=== PATIENT | female | born 1950 | race Caucasian/White ===

== ENCOUNTER → 2025-01-24 | Emergency (ER) | payer OTHER ==
[~2025-01-24] VITALS: Ht 160 cm; Wt 69.5 kg
[2025-01-24 20:05] VITALS: TEMP 98.1
[2025-01-24 20:59] LABS: PLATELET COUNT (AUTO) 414 K/uL (150-450); RED BLOOD CELL COUNT(AUTO) 4.59 MIL/uL (4.00-5.20); RED CELL DISTRIBUTION WIDTH 14.1 % (11.5-14.5); WHITE BLOOD COUNT (AUTO) 6.4 K/uL (4.5-11.0)
[2025-01-24 21:09] LABS: CALCIUM, TOTAL 8.8 mg/dL (8.8-10.5); CREATININE 0.77 mg/dL (0.60-1.30); GLOMERULAR FILTR. RATE CALC > 60 mL/min (>60); GLUCOSE,RANDOM 116 mg/dL (70-110); SODIUM SERUM 140 mmol/L (136-145); UREA NITROGEN, BLOOD 17 mg/dL (7-18)
[2025-01-24 21:15] LABS: ASPARTATE AMINOTRANSFERASE 18.0 U/L (15-37); TOTAL PROTEIN, SERUM 7.2 g/dL (6.4-8.2)
[2025-01-24] MEDS: LIDOCAINE 5% TRANSDERMAL PATCH TD ONE (22:42)
[2025-01-24] MEDS: KETOROLAC TROMETHAMINE 30 MG/ML VIAL IM ONE (22:42)
[2025-01-24 23:24] VITALS: BP 148/77; PULSE 85; RESP 18; O2SAT 95
== END | disposition home or self-care (01) ==
LOC: EMS 19:57
DX: M54.2 Cervicalgia (principal); I10 Essential (primary) hypertension
CPT/HCPCS: 99283; 80048; 80076; 83690; 85025; 36415; 96372; J1885